=== PATIENT | male | born 1990 | race Caucasian/White ===

== ENCOUNTER 2018-07-24 08:41 | Emergency (ER) | payer MEDICAID ==
[~2018-07-24] VITALS: Ht 175.3 cm; Wt 84.0 kg
[~2018-07-24 08:41] MED LIST: CEPH-368 PO; SULF1TAB24 PO
[2018-07-24 08:43] VITALS: BP 125/80
[2018-07-24] MEDS ORDERED: METHOCARBAMOL 750 MG TABLET ONE (09:00)
[2018-07-24] MEDS ORDERED: KETOROLAC 30 MG/1 ML ONE (09:00)
[2018-07-24] MEDS ORDERED: METHOCARBAMOL 750 MG TABLET PO ONE (10:00)
[2018-07-24] MEDS ORDERED: KETOROLAC 30 MG/1 ML IM ONE (10:00)
== END 2018-07-24 09:56 | disposition home or self-care (01) ==
LOC: ED 09:50
DX: S39.012A Strain of muscle, fascia and tendon of lower back, initial encounter (principal); F17.200 Nicotine dependence, unspecified, uncomplicated; V20.9XXA Unspecified motorcycle rider injured in collision with pedestrian or animal in traffic accident, initial encounter; Y93.89 Activity, other specified; Y99.8 Other external cause status; Y92.89 Other specified places as the place of occurrence of the external cause
CPT/HCPCS: 72110; 96372; 99284; J1885

== ENCOUNTER 2019-09-07 14:02 | Emergency (ER) | payer MEDICAID ==
[~2019-09-07] VITALS: Ht 177.8 cm; Wt 86.6 kg
[2019-09-07 14:33] VITALS: BP 112/67
--- NOTE | 2019-09-07 17:06 | NUR ---
EDGE INKER: LATE ENTRY FOR 1607 NIL 1607
--- NOTE | 2019-09-07 17:07 | NUR ---
BUSHEL GIRL. NO ANSWER X3
--- NOTE | 2019-09-07 17:07 | NUR ---
IMPREGNATION OPERATOR: LATE ENTRY FOR 162 NO ANSWER X2
== END 2019-09-07 17:09 | disposition left against medical advice (07) ==
LOC: ED 17:03
DX: R10.9 Unspecified abdominal pain (principal); Z53.21 Procedure and treatment not carried out due to patient leaving prior to being seen by health care provider

== ENCOUNTER 2020-07-29 12:13 | Emergency (ER) | payer SELFPAY ==
[~2020-07-29] VITALS: Ht 177.8 cm; Wt 84.0 kg
[2020-07-29 12:32] VITALS: BP 137/74
[2020-07-29] MEDS ORDERED: LIDOCAINE-MPF 2% ,5ML ONE (12:51)
[2020-07-29] MEDS ORDERED: OXYcodone/APAP 5/325MG TABLET ONE (12:52)
[2020-07-29] MEDS ORDERED: DIPH,PERTUSS(ACELL),TET VAC/PF 0.5 ML IM-VACC ONE ×2 (12:52→13:00)
[2020-07-29] MEDS ORDERED: LIDOCAINE 2%, 20ML SQ ONE (13:00)
[2020-07-29] MEDS ORDERED: OXYcodone/APAP 5/325MG TABLET PO ONE ×2 (13:00→15:00)
--- NOTE | 2020-07-29 14:39 | NUR ---
TASK RN: PT TO ROOM 5 W/ C/O R INDEX FINGER LAC AFTER SAFE CRUSHED IT. PT RESTING ON GURNEY. NADN. SUTURES APPLIED. BACITRACIN AND SPLINT TO BE PLACED.
[2020-07-29] MEDS ORDERED: NEOSPORIN OINT. PKT 1 PACKET ONE (14:48)
== END 2020-07-29 15:11 | disposition home or self-care (01) ==
LOC: ED 13:47
DX: S61.211A Laceration without foreign body of left index finger without damage to nail, initial encounter (principal); X58.XXXA Exposure to other specified factors, initial encounter; Y93.89 Activity, other specified; Y92.009 Unspecified place in unspecified non-institutional (private) residence as the place of occurrence of the external cause; Y99.8 Other external cause status
CPT/HCPCS: 12001; 90471; 90715; 99283